=== PATIENT | male | born 1960 | race Caucasian/White ===

== ENCOUNTER 2017-05-20 07:03 | Day surgery (SDC) | payer BC ==
[2017-05-19 14:01] VITALS: BMI 25.7
[2017-05-20 08:18] VITALS: BP 118/83; TEMP 97.5
--- NOTE | 2017-05-20 10:31 | RAD ---
EXAM: LUMBAR SPINE MYELOGRAM: HISTORY: Lumbar radiculopathy. Previous lumbar fusion. EXPOSURE: 0.6 minutes. 1978 mGy*^m2. 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 There is als o vertebroplasty change at L5. Bilateral transpedicular screws at L5. Bilateral transpedicular scre ws at L5 and S1 without perihardware lucency. There is 1.5 cm of grade I anterolisthesis of L5 upon S1. Atherosclerosis of the aorta is noted. Successful lumbar puncture for intrathecal contrast administration. A total of 109 cc of Isovue 200- M contrast was administered intrathecally. No immediate or post procedure complication. TECHNIQUE: Consent was obtained to perform a lumbar puncture for intrathecal contrast administration. The patie nt's back was evaluated. The L2-L3 level was deemed appropriate. The skin was prepped and draped in sterile fashion. 1% Lidocaine, buffered with sodium bicarbonate, was used for local anesthesia. Un pamela fluoroscopic guidance, a 22-gauge spinal needle was advanced into the CSF space. A total of 10 c c of Isovue 200-M contrast was administered intrathecally. The patient tolerated the procedure well. No immediate or post procedure complications. IMPRESSION: Successful lumbar puncture per lumbar myelogram. Please refer to post myelogram CT for further detai ls. POS: [facility]
--- NOTE | 2017-05-20 11:03 | CT ---
POST MYELOGRAM LUMBAR SPINE CT: Date: HISTORY: Lumbar fusion. Lumbar radiculopathy. COMPARISON: None. TECHNIQUE: Post myelogram lumbar spine CT is performed in the axial plane. Reformatted images are submitted for interpretation. FINDINGS: Previous vertebroplasty change at T12, L1, and L2. 1.1 cm of anterolisthesis of L5 upon S1. Bilateral transpedicular screws at L5 and S1. No perihardware lucency. Laminectomy defect at L5-S1. Symmetric attenuation of the psoas muscles. Exophytic cyst emanating from the right kidney measuring 3.9 x 3.8 cm. Linear hyperdensity on the lef t kidney likely due to previous vertebroplasty change. Additional hyperdensity along the left paraspi nal region at the L2 level also likely due to previous vertebroplasty. No retroperitoneal mass, lymph adenopathy, or hematoma. Visualized alimentary canal is unremarkable. Coronal reformatted images do not demonstrate any malalignment. Spinous processes and transverse proc esses are intact. Conus medullaris terminates at the mid L1 level. T10-T11 and T11-T12: No high grade central canal stenosis. No high grade neural foraminal narrowing. T12-L1: No high grade central canal stenosis. Neural foramina are patent. L1-L2: No high grade central canal stenosis. Neural foramina are patent. L2-L3: No high grade central canal stenosis. Neural foramina are patent. There is minimal disc bulge. L3-L4: Generalized disc bulge results in minimal central canal stenosis. Minimal posterior element hypertrop hy. Mild to moderate right and left foraminal narrowing. L4-L5: Posterior decompressive laminectomy defect. No high grade central canal stenosis. Severe bilateral fo raminal narrowing. L5-S1: No significant posterior disc abnormality. No significant central canal stenosis. Mild bilateral neur al foraminal narrowing. IMPRESSION: 1. Postsurgical changes as defined above. 2. Grade I anterolisthesis of L5 upon S1. 3. Severe bilateral foraminal narrowing at L4-L5. POS: [facility]
[2017-05-20] MEDS ORDERED: Iopamidol-M 200 41% 20 ML VIAL ONE (13:34)
== END 2017-05-20 09:45 | disposition home or self-care (01) ==
LOC: RAD 07:03
PROVIDERS: ATTEND Specialist
PROC: B02B1ZZ Computerized Tomography (CT Scan) of Spinal Cord using Low Osmolar Contrast (ICD-10-PCS; principal; 2017-05-20)
DX: M96.1 Postlaminectomy syndrome, not elsewhere classified (principal); M47.27 Other spondylosis with radiculopathy, lumbosacral region; M51.16 Intervertebral disc disorders with radiculopathy, lumbar region; F10.21 Alcohol dependence, in remission; Z85.528 Personal history of other malignant neoplasm of kidney; Z79.899 Other long term (current) drug therapy; Z98.1 Arthrodesis status; Z98.890 Other specified postprocedural states
CPT/HCPCS: 62304; 72132

== ENCOUNTER 2017-06-02 07:44 | Day surgery (SDC) | payer BC ==
[2017-06-01 09:40] VITALS: BMI 27.1
[2017-06-02] MEDS ORDERED: Thrombin 5000 UNITS/5 ML VIAL ONE (09:25)
[2017-06-02] MEDS ORDERED: Famotidine/PF 20 mg/2ml Vial ONE (09:33)
[2017-06-02] MEDS ORDERED: CEFAZOLIN/Water 2 GM/20 ML SYRINGE ONE ×2 (09:36→14:50)
[2017-06-02] MEDS ORDERED: Fentanyl 100 MCG/2 ML VIAL ONE ×6 (09:45→13:04)
--- NOTE | 2017-06-02 09:51 | PRG ---
DATE OF SERVICE: 06/02/2017 Mr. Self is a 57-year-old gentleman known to us for outpatient evaluation for cervical radiculopat hy. He had imaging performed at [facility] in the way of an MRI scan which revealed disk osteophy te complexes at C4-5, C5-6 which correlate well with his cervical symptoms. Our plan is to move deneen dwyer this morning with a 2 level anterior cervical diskectomy and fusion C4-C6. I met with him in the preoperative holding area, where his was present. I discussed with them t he surgical plan as well as risks, benefits, and alternatives. They did offer informed consent as he did in the outpatient setting as well.
[2017-06-02] MEDS ORDERED: Midazolam HCl 2 mg/2 ml Vial ONE (11:50)
[2017-06-02] MEDS ORDERED: Tamsulosin HCl 0.4 MG CAP ONE (12:42)
[2017-06-02] MEDS ORDERED: HYDROcodone/Acetaminophen 5/325 mg Tablet ONE ×2 (14:36→14:37)
[2017-06-02] MEDS ORDERED: Lidocaine 1% PF 5 ML VIAL ONE ×2 (16:31)
[2017-06-02] MEDS ORDERED: Dexamethasone 20 MG/5 ML VIAL ONE (16:31)
[2017-06-02] MEDS ORDERED: Propofol 200 MG/20 ML VIAL ONE (16:31)
[2017-06-02] MEDS ORDERED: PHENYLEPHRINE-NS 100 MCG/ML 10 ML SYRINGE ONE (16:31)
[2017-06-02] MEDS ORDERED: Ondansetron HCl/PF 4 MG/2 ML Vial ONE (16:31)
[2017-06-02] MEDS ORDERED: Glycopyrrolate 0.2 MG/ML 5 ML SYRINGE ONE (16:31)
--- NOTE | 2017-06-03 15:27 | OP ---
DATE OF PROCEDURE: 06/02/2017 SURGEON: Dr. Kana Diaz CAR BUILDER: Celestino Temple PA-C. INDICATION: Pain. DIAGNOSIS: Cervical spondylitic stenosis with associated radiculopathy. PROCEDURE: Anterior cervical discectomy and fusion C4-C6. ANESTHESIA: General. PROCEDURE IN DETAIL: The patient was brought into the operating room and placed under general anesth esia. He was placed on the table in supine position. A transverse incision was planned over the lat eral aspect of the neck on the right. After prepping and draping and after an appropriate operative pause, the incision was created. The underlying platysma muscles identified and incised. A blunt ti ssue plane anterior to the sternocleidomastoid muscle was used to gain access to the prevertebral spa ce. Self-retaining retractors were placed in the wound. Once we confirmed the appropriate location an annulotomy was performed at C4-5 and C5-6 disk spaces. All disk material as well as anterior and posterior osteophytes were removed until the exiting nerve roots were decompressed. A 7 mm lordotic PEEK cages packed with allograft and autograft material were placed within the interbody space. An a nterior cervical plate was then fashioned to the front of the spine and secured with a total of 6 scr ews. Midline and lateral structures were inspected and found to be free from significant trauma. Th e wound was irrigated. Hemostasis was maintained throughout. The wound was then closed in anatomic layers and a pressure dressing was applied. There were no known procedural complications.
== END 2017-06-02 15:48 | disposition home or self-care (01) ==
LOC: SDC 07:44
PROVIDERS: ATTEND Neurological Surgery
PROC: 0RG20A0 Fusion of 2 or more Cervical Vertebral Joints with Interbody Fusion Device, Anterior Approach, Anterior Column, Open Approach (ICD-10-PCS; principal; 2017-06-02)
PROC: 0RT30ZZ Resection of Cervical Vertebral Disc, Open Approach (ICD-10-PCS; principal; 2017-06-02)
DX: M48.02 Spinal stenosis, cervical region (principal); M46.92 Unspecified inflammatory spondylopathy, cervical region; M54.12 Radiculopathy, cervical region; M25.78 Osteophyte, vertebrae; M19.90 Unspecified osteoarthritis, unspecified site; F17.210 Nicotine dependence, cigarettes, uncomplicated; F10.21 Alcohol dependence, in remission; Z79.899 Other long term (current) drug therapy; Z98.1 Arthrodesis status; Z90.89 Acquired absence of other organs; Z98.890 Other specified postprocedural states; Z85.53 Personal history of malignant neoplasm of renal pelvis; Z87.81 Personal history of (healed) traumatic fracture
CPT/HCPCS: 76001; 96374; C1713; C1776; J0131; J1100; J2001; J2250; J2270; J2405; J2704; J3010; S0028

== ENCOUNTER 2017-07-08 08:18 | Outpatient (CLI) | payer BC ==
--- NOTE | 2017-07-08 09:09 | RAD ---
AP AND LATERAL CERVICAL SPINE: History: Follow up from surgery. Comparison: None. FINDINGS: Open mouth odontoid view is unremarkable. ACDF hardware C4-6 with satisfactory position. No hardware complication. The disc arthropathy is in good position. IMPRESSION: 1. Satisfactory appearance of ACDF hardware without complication. 2. Advanced degenerative disease at C6-7 with disc space narrowing, osteophyte formation, as well as uncinate process hypertrophy. POS: [facility]
== END 2017-07-08 08:19 | disposition home or self-care (01) ==
LOC: TBSIIMAG 08:18
PROVIDERS: ATTEND Neurological Surgery
DX: M47.22 Other spondylosis with radiculopathy, cervical region (principal); M48.02 Spinal stenosis, cervical region; Z98.1 Arthrodesis status
CPT/HCPCS: 72040

== ENCOUNTER 2021-08-21 14:48 | Outpatient (CLI) | payer BC ==
[2021-08-21 16:18] LABS: #Basophils 0.1 10x3/uL (0.0-0.2); #Eosinphils 0.1 10x3/uL (0.0-0.5); #Monocytes 0.9 10x3/uL (0.0-1.1); #Neutrophils 5.6 10x3/uL (1.5-8.4); %Basophils 0.9 % (0.0-2.0); %Lymphocytes 16.7 % (18.0-47.0); %Monocytes 10.7 % (0.0-10.0); %Neutrophils 70.2 % (40.0-75.0); Hemoglobin 17.1 g/dL (13.5-17.5); Mean Corpuscular HGB CONC 36.6 g/dL (32.0-36.0); Mean Corpuscular Hemoglobin 33.6 pg (27.0-33.0); Mean Corpuscular Volume 91.7 fl (81.2-95.1); Mean Platelet Volume 10.6 fl (7.4-10.4); Platelet Count 192 10x3/uL (150-450); Red Blood Cell (RBC) Count 5.09 10x6/uL (4.32-5.72)
[2021-08-21 17:00] LABS: ALT (SGPT) 36 U/L (8-55); AST (SGOT) 26 U/L (5-34); Albumin 4.2 g/dL (3.4-4.8); Alkaline Phosphatase 50 U/L (40-110); Anion Gap 14 mmol/L (10-20); BUN (Urea Nitrogen) 11 mg/dL (8.4-25.7); Bilirubin, Total 0.7 mg/dL (0.2-1.2); Calc. Creatinine Clearance 0 mL/min (70-130); Carbon Dioxide 26 mmol/L (23-31); Chloride 103 mmol/L (98-107); Globulin 2.3 g/dL (2.4-3.5); Glucose 76 mg/dL (80-115); Potassium 4.2 mmol/L (3.5-5.1); Protein, Total 6.5 g/dL (5.8-8.1); Sodium 139 mmol/L (136-145)
[2021-08-21 22:48] LABS: SARS-CoV-2 PCR by NAA Not Detected (NotDetected)
== END 2021-08-21 14:49 | disposition home or self-care (01) ==
LOC: LABBT 14:48
PROVIDERS: ATTEND Surgery
DX: Z01.818 Encounter for other preprocedural examination (principal); K43.2 Incisional hernia without obstruction or gangrene; Z20.822 Contact with and (suspected) exposure to COVID-19
CPT/HCPCS: 80053; 85025; 93005; 93010; U0003; U0005

== ENCOUNTER 2021-08-22 08:21 | Day surgery (SDC) | payer BC ==
[2021-08-21 14:19] VITALS: BMI 27.1
[2021-08-22] MEDS ORDERED: ceFAZolin (BATCH) 2 GM/100 ML BAG ONE (09:23)
[2021-08-22] MEDS ORDERED: fentaNYL Citrate/PF 100 MCG/2 ML SYRINGE ONE (10:28)
[2021-08-22] MEDS ORDERED: Lidocaine 1% w/Epinephrine 1:100K 20 ML VIAL ONE (10:30)
[2021-08-22] MEDS ORDERED: Bupivacaine 0.25% 10 ML VIAL ONE (10:30)
[2021-08-22] MEDS ORDERED: Rocuronium Bromide 10 MG/ML (10ML VIAL) ONE (10:51)
[2021-08-22] MEDS ORDERED: PROPOFOL 200 MG/20 ML VIAL ONE (10:51)
[2021-08-22] MEDS ORDERED: Ondansetron PF 4 MG/2 ML Vial ONE (10:51)
[2021-08-22] MEDS ORDERED: Ketorolac Tromethamine 30 MG/ML VIAL ONE (10:51)
[2021-08-22] MEDS ORDERED: Dexamethasone 20 MG/5 ML VIAL ONE (10:51)
[2021-08-22] MEDS ORDERED: Glycopyrrolate 0.2 MG/ML 5 ML SYRINGE ONE (10:51)
[2021-08-22] MEDS ORDERED: PHENYLEPHRINE-NS 100 MCG/ML 10 ML SYRINGE ONE (10:51)
[2021-08-22] MEDS ORDERED: Lidocaine 1% PF 5 ML VIAL ONE (10:51)
[2021-08-22] MEDS ORDERED: Fentanyl 100 MCG/2 ML VIAL ONE (12:01)
== END 2021-08-22 13:10 | disposition home or self-care (01) ==
LOC: SDC 08:21
PROVIDERS: ATTEND Surgery
PROC: 0WUF0JZ Supplement Abdominal Wall with Synthetic Substitute, Open Approach (ICD-10-PCS; principal; 2021-08-22)
DX: K43.2 Incisional hernia without obstruction or gangrene (principal); F17.210 Nicotine dependence, cigarettes, uncomplicated
CPT/HCPCS: C1781; J0690; J1100; J1885; J2405; J2704; J3010; S0020

== ENCOUNTER 2022-02-13 12:15 | Outpatient (CLI) | payer BC | END 2022-02-13 12:16 | disposition home or self-care (01) | LOC: TBSIIMAG 12:15 | PROVIDERS: ATTEND Specialist | DX: M51.16 Intervertebral disc disorders with radiculopathy, lumbar region (principal); G95.19 Other vascular myelopathies; Z98.890 Other specified postprocedural states | CPT/HCPCS: 72148 ==

== ENCOUNTER 2022-02-13 13:36 | Outpatient (CLI) | payer BC | END 2022-02-13 13:37 | disposition home or self-care (01) | LOC: BICRAD 13:36 | PROVIDERS: ATTEND Family Medicine | DX: S00.83XA Contusion of other part of head, initial encounter (principal); Y09 Assault by unspecified means | CPT/HCPCS: 70110; 70150 ==

== ENCOUNTER 2022-03-10 10:24 | Day surgery (SDC) | payer BC ==
[2022-03-09 14:19] VITALS: BMI 25.7
[2022-03-10] MEDS ORDERED: Iopamidol 30 ML ONE (12:36)
[2022-03-10] MEDS ORDERED: Bupivacaine HCl 0.5%/Epinephrine 1:200,000/PF 30 ml Vial ONE (12:36)
[2022-03-10] MEDS ORDERED: Lidocaine 1% MPF 2 ML VIAL ONE (12:36)
[2022-03-10] MEDS ORDERED: Lidocaine 2% PF 5 ML VIAL ONE (13:11)
[2022-03-10] MEDS ORDERED: fentaNYL PF 100 MCG/2 ML SYRINGE ONE (13:51)
[2022-03-10] MEDS ORDERED: Ketamine 50 MG/ML (10ML VIAL) ONE (13:51)
[2022-03-10] MEDS ORDERED: Propofol 1,000 MG/100 ML VIAL IV ONE (13:51)
== END 2022-03-10 15:15 | disposition home or self-care (01) ==
LOC: SDC 10:24
PROVIDERS: ATTEND Specialist
PROC: 0QS03ZZ Reposition Lumbar Vertebra, Percutaneous Approach (ICD-10-PCS; principal; 2022-03-10)
PROC: 0QU03JZ Supplement Lumbar Vertebra with Synthetic Substitute, Percutaneous Approach (ICD-10-PCS; principal; 2022-03-10)
PROC: 0Q903ZX Drainage of Lumbar Vertebra, Percutaneous Approach, Diagnostic (ICD-10-PCS; principal; 2022-03-10)
DX: M48.56XA Collapsed vertebra, not elsewhere classified, lumbar region, initial encounter for fracture (principal); M51.16 Intervertebral disc disorders with radiculopathy, lumbar region; M47.26 Other spondylosis with radiculopathy, lumbar region; M96.1 Postlaminectomy syndrome, not elsewhere classified; M46.1 Sacroiliitis, not elsewhere classified; F17.210 Nicotine dependence, cigarettes, uncomplicated; M19.90 Unspecified osteoarthritis, unspecified site; Z79.899 Other long term (current) drug therapy; Z90.5 Acquired absence of kidney; Z98.1 Arthrodesis status
CPT/HCPCS: 72020; 88307; 88311; 88342; C1713; J2001; J2704; Q9967

== ENCOUNTER 2023-02-24 07:24 | Outpatient (CLI) | payer BC | END 2023-02-24 07:25 | disposition home or self-care (01) | LOC: SCSMRI 07:24 | PROVIDERS: ATTEND Nurse Practitioner Family | DX: S32.020A Wedge compression fracture of second lumbar vertebra, initial encounter for closed fracture (principal); M51.16 Intervertebral disc disorders with radiculopathy, lumbar region; M47.26 Other spondylosis with radiculopathy, lumbar region; M89.38 Hypertrophy of bone, other site; M48.061 Spinal stenosis, lumbar region without neurogenic claudication; M48.07 Spinal stenosis, lumbosacral region; M47.814 Spondylosis without myelopathy or radiculopathy, thoracic region; M51.34 Other intervertebral disc degeneration, thoracic region | CPT/HCPCS: 72146; 72148 ==